=== PATIENT | male | born 1995 | race Caucasian/White ===

== ENCOUNTER 2024-02-06 13:20 | Outpatient (REF) | payer OTHER, SELFPAY ==
--- NOTE | ~2024-02-06 | MR_ITS ---
EXAMINATION: MR BRAIN WITHOUT AND WITH CONTRAST CLINICAL INFORMATION: Glioblastoma restaging status post surgery COMPARISON: Outside MRI brain on 01/19/2024 and 01/15/2024 TECHNIQUE: Multiplanar, multisequence MRI of the brain was obtained before and after the intravenous administration of 9 mL Gadavist. FINDINGS: Postsurgical changes from left frontal craniotomy for mass resection. Small volume extra-axial fluid collection along the left frontal convexity. There is fluid within the surgical cavity. Irregular enhancement with corresponding susceptibility artifact on GRE along the margins of the surgical cavity, compatible with postsurgical hemorrhagic products. Additionally, there is irregular serpentine and masslike enhancement involving the subjacent brain parenchyma surrounding and posterior to the surgical cavity with corresponding restricted diffusion. The mass like region of enhancement posterior to the cavity measures approximately 2.6 x 2.2 cm. Regional mass effect is noted in the left frontal lobe. No other site of suspicious enhancement. No midline shift or hydrocephalus. No acute intracranial hemorrhage. The osseous structures are unremarkable. The pituitary gland, pineal gland and remaining midline structures are unremarkable. No orbital pathology. Moderate mucosal thickening of the paranasal sinuses. The mastoid air cells are clear. MR/MR head/brain wo/w con IMPRESSION: Postsurgical changes from left frontal craniotomy for mass resection. Irregular serpentine and masslike enhancement involving the subjacent brain parenchyma is concerning for residual tumor.
[2024-02-06] MEDS: gadobutroL 10 ML VIAL IVPUSH (15:12)
== END 2024-02-06 13:21 | disposition home or self-care (01) ==
LOC: HO.MRI 13:20
PROVIDERS: Visit Provider Student in an Organized Health Care Education/Training Program
DX: C71.9 Malignant neoplasm of brain, unspecified (principal)
CPT/HCPCS: 70553; A9585